=== PATIENT | male | born 1965 | race Two or more races ===

== ENCOUNTER 2019-12-18 13:00 | Emergency (ER) | payer SELFPAY ==
[~2019-12-18] VITALS: Ht 175.3 cm; Wt 59.0 kg
== END 2019-12-18 14:26 | disposition home or self-care (01) ==
LOC: ER 13:00
DX: J40 Bronchitis, not specified as acute or chronic (principal); J30.9 Allergic rhinitis, unspecified
CPT/HCPCS: 99282